=== PATIENT | female | born 1935 | race Caucasian/White ===

== ENCOUNTER → 2017-12-05 | Outpatient (CLI) | payer MEDICARE, OTHER ==
[~2017-12-05] MED LIST: ISOVUE-370 76% 100ML VIAL (Q9967) As Ordered
== END ==
LOC: M RAD 12:45
DX: R13.10 Dysphagia, unspecified (principal); K44.9 Diaphragmatic hernia without obstruction or gangrene
CPT/HCPCS: Q9967

== ENCOUNTER 2017-12-19 10:09 | Day surgery (SDC) | payer MEDICARE ==
[2017-12-19] MEDS ORDERED: NS 1,000 ML IV (10:15)
[2017-12-19] MEDS ORDERED: PROPOFOL 200 MG/20 ML VIAL As Ordered ×2 (11:13)
[2017-12-19] MEDS ORDERED: ALBUTEROL SULFATE 2.5 MG/0.5 ML INH NEB SOLN As Ordered (11:14)
[2017-12-19] MEDS: ALBUTEROL SULFATE 2.5 MG/0.5 ML INH NEB SOLN INH (11:15)
[2017-12-19] MEDS ORDERED: LIDOCAINE 2% INJ 100 MG/5 ML SDV (FOR ANES.) As Ordered (11:18)
== END 2017-12-19 12:41 | disposition home or self-care (01) ==
LOC: M OPP 10:09
DX: R13.10 Dysphagia, unspecified (principal); K44.9 Diaphragmatic hernia without obstruction or gangrene; K22.8 Other specified diseases of esophagus; K31.89 Other diseases of stomach and duodenum; K21.9 Gastro-esophageal reflux disease without esophagitis; R12 Heartburn; R06.02 Shortness of breath; M19.90 Unspecified osteoarthritis, unspecified site; M41.9 Scoliosis, unspecified; M81.0 Age-related osteoporosis without current pathological fracture; J44.9 Chronic obstructive pulmonary disease, unspecified; Z87.891 Personal history of nicotine dependence; Z79.899 Other long term (current) drug therapy; Z80.8 Family history of malignant neoplasm of other organs or systems
CPT/HCPCS: 43235

== ENCOUNTER 2018-03-25 11:26 | Inpatient (IN) | payer MEDICARE ==
[~2018-03-25] VITALS: Ht 149.9 cm; Wt 58.0 kg
[2018-03-25] VITALS (31 sets, daily range): BP systolic 115–174; BP diastolic 65–104
[2018-03-25] MEDS: MOM 30ML SUSPENSION UDC PO SCH (09:00)
[~2018-03-25 11:26] MED LIST changes: +/MOXI40TA OR; +/TIOT18INH INH; +ALBU83IN INH; +ATIV0.5T OR; +BABY81CH OR; +CALCTAB22 OR; +DEXI60CA2 PO; -ISOVUE-370 76% 100ML VIAL (Q9967) As Ordered; +MIRA3350 PO; +MULTIVIT PO; +OMEP40CA2 PO; +PRED10TA2 OR; +PRIL40CA OR; +PROAAER10 INH; +PULM0.5S INH; +RA C100C11 PO; +RANI150T PO; +SPIR12.9 INH; +SUCR1TA PO; +SYMB16INH INH; +TREL1AER INH; +XOPE1.252 IN
[2018-03-25] MEDS ORDERED: SUCR10SS PO (13:57)
[2018-03-25] MEDS ORDERED: ASPI1TAB PO (13:58)
[2018-03-25] MEDS ORDERED: TYLE325T5 PO (13:58)
[2018-03-25] MEDS ORDERED: DOCU100T8 PO (13:58)
[2018-03-25 14:54] LABS: INR 0.99; PROTHROMBIN TIME 13.2 SECONDS (12.1-14.4)
--- NOTE | 2018-03-25 15:07 | REP ---
Clinical: Pleural effusion. Technique: Axial noncontrast images from the thoracic inlet to the upper abdomen with coronal and sagittal re-formations. Comparison: 12/05/2017. Findings: Ujhgkjoi-me-pwzkd right pleural effusion is appreciated along with near complete collapse to the right lower lobe as well as right middle lobe and right upper lobe perihilar atelectasis. Left hemithorax demonstrates minimal left basilar atelectasis. Atherosclerotic changes to the thoracic aorta and coronary arteries identified without aortic aneurysm or cardiomegaly. No significant pericardial effusion. No significant hiatal hernia identified on current examination. No pneumothorax. Osseous structures demonstrate degenerative changes and stable grade 3/four compression deformities at T11 through L2. Impression: Lurdhfpl-[id number] right pleural effusion with near complete collapse to the right lower lobe and associated perihilar right middle lobe and right upper lobe atelectasis. Electronically Signed by Chucky Ann MD 03/25/2018 02:58 P
--- NOTE | 2018-03-25 15:09 | REP ---
Clinical: Pleural effusion. Comparison: 07/31/2011. Findings: Ujrztdko-cz-asqkq right pleural effusion with bibasilar atelectasis. Cardiac silhouette is within normal limits. No pneumothorax identified. Skeletal structures intact. Impression: Zxoxprup-gh-opwre right pleural effusion with bibasilar atelectasis. Electronically Signed by Chucky Ann MD 03/25/2018 03:00 P
[2018-03-25] MEDS: methylPREDNISolone INJ 125 MG/2 ML VIAL (J2930) IV SCH ×2 (15:36→22:08)
[2018-03-25] MEDS: IPRATROPIUM 0.5MG/ALBUTEROL 2.5MG INH SOL UD 3ML (DUONEB)(J7620) NEB PRN (16:30)
[2018-03-25] MEDS ORDERED: MIDAZOLAM INJ 2 MG/2 ML VIAL (J2250) As Ordered ONE (16:59)
[2018-03-25] MEDS ORDERED: LIDOCAINE 1% MDV 20ML VIAL As Ordered ONE (16:59)
[2018-03-25] MEDS ORDERED: FLUMAZENIL 0.5 MG/5 ML VIAL As Ordered ONE (17:16)
[2018-03-25] MEDS ORDERED: KCL 20MEQ IN D5/NS 1000ML 1,000 ML IV SCH (17:41)
[2018-03-25] MEDS ORDERED: ACETAMINOPHEN TAB 650MG DOSE (2X325MG) PO PRN (17:45)
[2018-03-25] MEDS ORDERED: PERCOCET 5MG/325MG TAB PO PRN ×2 (17:45)
[2018-03-25] MEDS ORDERED: BISACODYL 10 MG SUPP PR PRN (17:45)
[2018-03-25] MEDS ORDERED: LEVALBUTEROL 1.25 MG/0.5 ML CONCENTRATE NEB NEB PRN (17:45)
[2018-03-25] MEDS ORDERED: ONDANSETRON 4MG/2ML VIAL (J2405) IV PRN (17:45)
[2018-03-25] MEDS ORDERED: NORCO, ANEXSIA 5/325MG TABLET (HYDROcodone/ACETAMINOPHEN) PO PRN (17:45)
--- NOTE | 2018-03-25 17:57 | REP ---
Clinical: Status post chest tube. Comparison: 03/25/2018 at 02:28 p.m. Findings: Right-sided chest tube extends to the medial mid lung zone. Previously noted large right pleural effusion is considerably improved. Bibasilar atelectasis and small left pleural effusion suggested. No obvious pneumothorax. Impression: Status post right chest tube with significantly improved right pleural effusion. Small left pleural effusion. Bibasilar atelectasis Electronically Signed by Chucky Ann MD 03/25/2018 05:48 P
[2018-03-25] MEDS ORDERED: MIDAZOLAM INJ 2 MG/2 ML VIAL (J2250) IV STA (18:03)
[2018-03-25] MEDS ORDERED: LIDOCAINE 1% MDV 20ML VIAL SC ONE (18:15)
[2018-03-25 18:23] LABS: BASO % 0.2 % (0.0-1.0); HEMATOCRIT 39.7 % (36.0-47.0); HEMOGLOBIN 12.9 g/dl (12.0-15.5); LYMPH # 0.3 10^3/uL (1.5-4.5); LYMPH % 4.9 % (24.0-44.0); MEAN CORPUSCULAR HEMOGLOBIN 30.3 pg (27.0-33.0); MEAN CORPUSCULAR HGB CONC 32.5 g/dl (32.0-36.5); MEAN CORPUSCULAR VOLUME 93.2 fl (80.0-96.0); MONO # 0.1 10^3/uL (0.0-0.8); NEUTROPHILS # 5.6 10^3/uL (1.8-7.7); NEUTROPHILS % 93.2 % (36.0-66.0); PLATELET COUNT, AUTOMATED 382 10^3/uL (150-450); RED BLOOD COUNT 4.26 10^6/uL (4.00-5.40)
[2018-03-25 18:41] LABS: ALBUMIN 2.9 GM/DL (3.2-5.2); ALT/SGPT 16 U/L (12-78); BILIRUBIN,TOTAL 0.2 MG/DL (0.2-1.0); BLOOD UREA NITROGEN 9 MG/DL (7-18); CALCIUM LEVEL 8.7 MG/DL (8.8-10.2); CARBON DIOXIDE LEVEL 29 MEQ/L (21-32); CHLORIDE LEVEL 103 MEQ/L (98-107); CHOLESTEROL LEVEL 138 MG/DL (< 200); CPK CREATINE PHOSPHOKINASE 23 U/L (26-192); CREATININE FOR GFR 0.62 MG/DL (0.55-1.30); GLOMERULAR FILTRATION RATE > 60.0 (>32); GLUCOSE, FASTING 137 MG/DL (70-100); PHOSPHORUS LEVEL 3.5 MG/DL (2.5-4.9); POTASSIUM SERUM 4.3 MEQ/L (3.5-5.1); SODIUM LEVEL 139 MEQ/L (136-145); TOTAL PROTEIN 7.2 GM/DL (6.4-8.2); TRIGLYCERIDES LEVEL 47 MG/DL (<150)
[2018-03-25 18:43] LABS: ABG BASE EXCESS 2.7 (-2.0-2.0); ABG HCO3 27.4 MEQ/L (22.0-26.0); ABG PARTIAL PRESSURE CO2 42.4 mmHg (35.0-45.0); ABG PARTIAL PRESSURE O2 87.8 mmHg (75.0-100.0); ABG STANDARD HCO3 26.9 MEQ/L (22.0-26.0); ABG TOTAL CO2 28.7 MEQ/L (23.0-31.0); ABG pH (ARTERIAL) 7.428 UNITS (7.350-7.450)
[2018-03-25 18:58] LABS: APPEARANCE, BODY FLUID CLOUDY (CLEAR); PLEURAL FL COLOR YELLOW (COLORLESS); SOURCE, BODY FLUID PLEURAL
[2018-03-25 19:09] LABS: AMYLASE, BODY FLUID 27 U/L (NOT ESTABLISHED); CHOLESTEROL, BODY FLUID 93 MG/DL (NOT ESTABLISHED); LDH, BODY FLUID 194 U/L (NOT ESTABLISHED); SOURCE, BODY FLUID ALBUMIN PLEURAL; SOURCE, BODY FLUID AMYLASE PLEURAL; SOURCE, BODY FLUID CHOL PLEURAL; SOURCE, BODY FLUID GLUCOSE PLEURAL; SOURCE, BODY FLUID LDH PLEURAL; SOURCE, BODY FLUID TOT PROTEIN PLEURAL; SOURCE, BODY FLUID TRIG PLEURAL; TOTAL PROTEIN, BODY FLUID 4.9 G/DL (NOT ESTABLISHED); TRIGLYCERIDE, BODY FLUID 31 MG/DL (NOT ESTABLISHED)
[2018-03-25 19:15] LABS: PH BODY FLUID 7.579 UNITS (NOT ESTABLISHED); SOURCE, BODY FLUID pH PLEURAL
[2018-03-25 19:17] LABS: LDH LACTATE DEHYDROGENASE 168 U/L (84-246)
[2018-03-25] MEDS: HEPARIN SOD (PORCINE) 5000 UNITS/ML VIAL SC SCH (20:03)
[2018-03-25] MEDS: DOCUSATE SODIUM 100 MG CAP PO SCH (20:03)
[2018-03-25] MEDS: LEVALBUTEROL 1.25 MG/0.5 ML CONCENTRATE NEB NEB SCH (20:08)
--- NOTE | 2018-03-25 22:45 | HPE ---
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 The patient has apparently been short of breath approximately 1 week, unrelieved by her nebulizer treatments. She did not increase her oxygen during the week, she was maintained at 2 liters nasal cannula. She has a history of chronic obstructive pulmonary disease (COPD) exacerbation. She also has a history of pleural effusion with thoracentesis that was done in January of this year in [facility] in [place], results which are still pending review once we get the information. The patient has not had any associated cough or productive sputum, just shortness of breath that has been worsening for over 1 week. Chest x-ray that was done in [place] showed the patient had large right pleural effusion and thus is admitted in the intensive care unit (ICU) and will be further managed with us at [facility]. PAST MEDICAL HISTORY: 1. Oxygen dependent COPD ALLERGIES: She has no known drug allergies. FAMILY HISTORY: Noncontributory. SOCIAL HISTORY: The patient used to be a heavy smoker but quit approximately 10 years ago. Denies alcohol or illicit drugs. MEDICATIONS: She takes at home: - Tylenol 650 mg orally every 4 hours as needed - albuterol as needed - aspirin 81 mg orally daily - Dexilant 60 mg orally daily - Colace 100 mg orally twice a day - ranitidine 150 mg orally daily - sucralfate 10 mL by mouth before meals - Trilogy Ellipta one puff inhaled daily REVIEW OF SYSTEMS: Negative for all ten major systems except what is mentioned in the history of present illness. PHYSICAL EXAMINATION: VITAL SIGNS: Blood pressure 169/104, pulse 88 and regular, respiratory rate 30, temperature 98.6, oxygen saturation was 98% on 50% Ventimask. Head is atraumatic, normocephalic. Neck is supple with no jugular venous distention (JVD). Lungs have diminished breath sounds on the right. S1, S2 audible. No murmurs appreciated. Abdomen is soft. Positive bowel sounds. No pedal edema. Skin is intact. Neurologic examination, the patient is awake, alert and oriented times three. LABORATORIES: Coagulation profile: PT 13.2, INR is 0.99, and all laboratories from [place] were reviewed and were nominal. IMPRESSION: 1. Acute hypoxemic respiratory failure. 2. Pleural effusion. 3. Chronic obstructive pulmonary disease (COPD) exacerbation. PLAN: The patient is to be admitted to the intensive care unit (ICU). We will continue at 50% Ventimask and continue to titrate it down if possible. She was initially on bilevel positive airway pressure (BIPAP) when she came in from [place] and has tolerated 100% and was tolerating 50% as well. We will get Dr. Gamboa, thoracic surgeon, to put in a chest tube. He is aware and is on consultation. We will start the patient on Solu-Medrol at 60 every 8 hours and DuoNebs every 4 hours. Continue her preadmission medications. We will continue to follow her care in the intensive care unit (ICU). Total critical care time was 40 minutes.
[2018-03-26] VITALS (8 sets, daily range): BP systolic 106–142; BP diastolic 63–75
[2018-03-26] MEDS: LEVALBUTEROL 1.25 MG/0.5 ML CONCENTRATE NEB NEB SCH ×4 (01:20→19:54)
[2018-03-26 04:31] LABS: BASO % 0.2 % (0.0-1.0); HEMATOCRIT 33.4 % (36.0-47.0); HEMOGLOBIN 11.1 g/dl (12.0-15.5); LYMPH # 0.5 10^3/uL (1.5-4.5); LYMPH % 9.4 % (24.0-44.0); MEAN CORPUSCULAR HEMOGLOBIN 29.6 pg (27.0-33.0); MEAN CORPUSCULAR HGB CONC 33.2 g/dl (32.0-36.5); MEAN CORPUSCULAR VOLUME 89.1 fl (80.0-96.0); MONO # 0.2 10^3/uL (0.0-0.8); MONO % 3.2 % (0.0-5.0); NEUTROPHILS # 4.6 10^3/uL (1.8-7.7); NEUTROPHILS % 86.6 % (36.0-66.0); PLATELET COUNT, AUTOMATED 360 10^3/uL (150-450); RED BLOOD COUNT 3.75 10^6/uL (4.00-5.40); WHITE BLOOD COUNT 5.3 10^3/uL (4.0-10.0)
[2018-03-26 04:55] LABS: BLOOD UREA NITROGEN 12 MG/DL (7-18); CARBON DIOXIDE LEVEL 29 MEQ/L (21-32); CHLORIDE LEVEL 101 MEQ/L (98-107); CREATININE FOR GFR 0.52 MG/DL (0.55-1.30); GLOMERULAR FILTRATION RATE > 60.0 (>32); GLUCOSE, FASTING 144 MG/DL (70-100); POTASSIUM SERUM 3.8 MEQ/L (3.5-5.1); SODIUM LEVEL 137 MEQ/L (136-145)
[2018-03-26 06:09] LABS: ABG BASE EXCESS 5.1 (-2.0-2.0); ABG HCO3 30.2 MEQ/L (22.0-26.0); ABG O2 SATURATION 98.7 % (95.0-99.0); ABG PARTIAL PRESSURE CO2 46.4 mmHg (35.0-45.0); ABG PARTIAL PRESSURE O2 125.5 mmHg (75.0-100.0); ABG STANDARD HCO3 29.1 MEQ/L (22.0-26.0); ABG TOTAL CO2 31.6 MEQ/L (23.0-31.0); ABG pH (ARTERIAL) 7.431 UNITS (7.350-7.450)
[2018-03-26] MEDS: methylPREDNISolone INJ 125 MG/2 ML VIAL (J2930) IV SCH ×3 (06:53→23:00)
[2018-03-26] MEDS: SUCRALFATE SUSP 1GM/10ML UD PO SCH ×3 (08:19→17:32)
[2018-03-26] MEDS: ASPIRIN 81 MG ENTERIC TAB PO SCH (08:19)
[2018-03-26] MEDS: HEPARIN SOD (PORCINE) 5000 UNITS/ML VIAL SC SCH ×2 (08:19→21:05)
[2018-03-26] MEDS: PANTOPRAZOLE 40MG TAB (PROTONIX) PO SCH (08:19)
[2018-03-26] MEDS: FAMOTIDINE 20 MG TAB PO SCH (08:19)
[2018-03-26] MEDS: DOCUSATE SODIUM 100 MG CAP PO SCH ×2 (08:19→21:05)
[2018-03-26] MEDS: MOM 30ML SUSPENSION UDC PO SCH (08:19)
--- NOTE | 2018-03-26 09:11 | REP ---
Clinical: Follow up pleural effusion. Comparison: 03/25/2018. Findings: Right-sided chest tube. Bibasilar atelectasis, left lower lobe consolidation and small left pleural effusion. Small residual right pleural effusion cannot be excluded. No obvious pneumothorax. Cardiac silhouette is normal. Skeletal structures stable. Impression: 1. Left lower lobe consolidation with left basilar atelectasis and small pleural effusion may be slightly increased from prior examination. 2. Small right residual effusion cannot be excluded. Electronically Signed by Chucky Ann MD 03/26/2018 09:02 A
--- NOTE | 2018-03-26 12:13 | IPN ---
DATE: 03/26/2018 SUBJECTIVE: The patient tells me she is breathing much easier today. She has some pain when she coughs, but otherwise she has no specific complaints at this time. OBJECTIVE: VITAL SIGNS: Temperature 98.9, pulse 86, respiratory rate 20, blood pressure 106/63, oxygen saturation 97% on 2 liters. GENERAL: She is very pleasant frail elderly woman sitting up in bed. She does not appear to be in any acute distress. HEENT: Cranial nerves II-XII are grossly intact. She is wearing bifocal lenses. She has moist mucous membranes. No elevation of CVP. CARDIOVASCULAR: S1, S2, regular. RESPIRATORY: She actually has good air movement throughout bilaterally today. ABDOMEN: Benign. EXTREMITIES: No clubbing, cyanosis or edema. LABORATORY: WBC 5.3, hemoglobin 11.1, platelet count 360. Chemistry panel: Sodium 137, potassium 3.8, chloride 101, bicarbonate 29, BUN 12, creatinine 0.5. Arterial blood gas drawn this morning revealed a pH of 7.4, pCO2 of 46.4 and pO2 of 125.5. Pleural studies reveal elevated PMNs. Total WBC are 3080. Microbiology is currently pending. IMAGING: She had a chest x-ray from this morning that revealed left lower lobe consolidation with left basilar atelectasis and small pleural effusion. May be slightly increased from the prior exam. She had a CT scan of her chest yesterday which revealed moderate to large right pleural effusion with near complete collapse of the right lower lobe and associated perihilar right middle lobe and right upper lobe atelectasis. ASSESSMENT AND PLAN: This is an 82-year-old female with right-sided pleural effusion. PROBLEMS: 1. Right-sided pleural effusion. The etiology is not immediately clear. It does not appear to be grossly infected and as such at this time she is not on antibiotics. She does not appear septic. She is on nebulizer treatments. There is a history of COPD with chronic2 liters of oxygen dependence and as such she is on Solu-Medrol as well. She does not have any history of significant rheumatological conditions and there does appear to be some chronicity to it given the fact that it is mostly mononuclear cells. There is an order for cytology but not yet received by pathology. She reportedly also had thoracentesis completed in January at [facility]. There are no records in the chart despite my request for them at the time of her transfer from the [facility]. I will request the records once again to see if this has been worked up and evaluated already. It is certainly possible she could have a malignant effusion. 2. Large hiatal hernia. Patient is continued on her home Carafate. She is on Pepcid for that as well as Protonix. 3. Deep venous thrombosis (DVT) prophylaxis. She is on heparin. DISPOSITION: Pending further evaluation of her right-sided pleural effusion and chest tube. Thoracic surgery's help is greatly appreciated.
--- NOTE | 2018-03-26 13:12 | IPN ---
DATE: 03/26/2018 Ms Vanegas is breathing so much better today. She is sitting up in a chair comfortably and speaking in full sentences. Her pain is being well controlled at the chest tube insertion site. Her vital signs show a T-max of 98.8 with a heart rate that ranges between 82 and 86 in a sinus rhythm, respiratory rate is constant at 22, without the use of accessory muscles who is 98% saturated on 2 liters nasal cannula, and whose blood pressure is ranging between 106/63 to 125/72. Her intake and output over the past 24 hours has been recorded as 600 in and 2692 out for a negativity of 2000 mL. Most of that came from the chest tube yesterday. Over the past 12 hours she has only put out 40 mL from the chest tube. There is no air leak. On physical examination, she has inspiratory rales in the right lower hemithorax. Percussion note is full to the diaphragm. Otherwise she has normal vesicular sounds. Cardiac exam is without murmurs, clicks, gallops or rubs. I cannot feel her point of maximal impulse (PMI). S1, S2 are normal. Abdomen is soft and nontender. Bowel sounds to be positive. There is no hepatomegaly. No costovertebral angle (CVA) tenderness. Extremities show no pretibial edema, no calf tenderness. No differential swelling of the upper extremities. Skin is warm, dry and perfused without cyanosis or mottling including that of the nail beds and the knees. Neck is supple. There is no jugular venous distention, no subcutaneous emphysema. Trachea is midline. Mouth shows her mucous membranes to be pink and moist, lips and commissures without lesions. No thrush. Eyes show her pupils to be equal and reactive. Extraocular muscles intact. Sclera anicteric. Neuro shows II through XII intact. Gross motor and gross sensation intact. Gait is not tested. Psychiatric shows her to be awake, alert and oriented times three with appropriate mood and affect, and conversational. Her white count today is 5.3, with hemoglobin and hematocrit of 11.1 and 33.4, down from 12.9 and 39.7 yesterday. This is probably secondary to hemodilution from her IV. Platelet count is 360 and differential shows 86% neutrophils, 9% lymphocytes and 3% monocytes. There are no immature forms, no toxic granulations. Her chemistries today show normal electrolytes with a BUN and creatinine of 12 and 0.52, a glucose of 144 and a calcium of 8.0. Blood gases this morning show a pH of 7.43, pCO2 of 46, and a pO2 of 125 on the 2 liters nasal cannula. Base excess is 5.1. Her pleural fluid has been returned with a pH of 7.57 with a glucose of 137 and an LDH of 194, with a corresponding serum LDH of 168. She has 3080 white cells, 83% of which are lymphocytes and 16% are PMNs. This looks to be a mildly exudative normoglycemic lymphocytic pleural effusion. Pathology is pending. Her chest x-ray shows the right lung fully expanded to the chest wall. There is some blunting of the left costophrenic angle which is unchanged. Chest tube is in excellent position posteriorly. I see no signs of heart failure. IMPRESSION: 1. Right-sided lymphocytic exudative pleural effusion. 2. COPD. 3. Gastroesophageal reflux disease. 4. Status post hiatal hernia repair in the last few months at [facility], presumably a Trisha fundoplication. 5. Hypoxic respiratory failure, resolved. PLAN AND DISCUSSION: I will order an echocardiogram to look at her cardiac function as a means of explaining her pleural fluid. According to the patient, the pleural effusion that I removed yesterday was the same color as was the left side that was removed at [facility]. They first told me that the pleural effusion that was tapped on the left side was red. This was more yuliya. We will also await pathology to see if there are any malignant cells. Will undertake a CT scan of her as the lung is now fully expanded.
--- NOTE | 2018-03-26 17:33 | CR ---
DATE OF CONSULTATION: 03/25/2018 The patient is seen at the request of the hospitalist service. The patient is an 82-year-old white female transferred from [place]. There are no historical notes from the [facility]. The patient is awake and alert and can give me a fairly good history. She is accompanied by her daughters. HISTORY OF PRESENT ILLNESS: The patient is an 82-year-old white female who states that over the last 4 days she has become progressively more short of breath. Normally, she does not complain of orthopnea or paroxysmal nocturnal dyspnea. She underwent hernia repair at [facility] in [place] this last fall, having a postoperative course notable for a left pleural effusion, which was drained. The family reports that the left pleural effusion was bloody. She has had a cough over the last few days with production of yellow sputum. She denies fevers, chills, sweats or night sweats. She has lost about 5 pounds in the last few weeks and her daughters note that her clothes are now loose on her. She has no dysphagia and she does not choke with swallowing either solid or liquid food. No chest pain. No chest discomfort. There is no dysphagia. PAST MEDICAL HISTORY: According to the patient she has chronic obstructive pulmonary disease (COPD) and gastroesophageal reflux disease (GERD). She also has constipation, for which she takes a stool softener. PAST SURGERIES: Hip repair in the remote past and the hiatal hernia repair, which I presume was a Trisha fundoplication a few weeks ago. MEDICATIONS: At home: - Tylenol 650 mg every 4 hours as needed for pain - ProAir HFA two puffs every 4 hours as needed for shortness of breath - albuterol nebulizer 2.5 mg three times a day - aspirin 81 mg daily - Dexilant 60 mg daily - Docusate 100 mg twice a day - MiraLAX 17 grams by mouth as needed for constipation - ranitidine 150 mg daily - sucralfate 10 mL by mouth after meals - Trilogy Ellipta 162.5/25 mcg one puff daily TRAVEL HISTORY: She has traveled to [place], but not to the [facility]. There is no foreign travel. EXPOSURES: She has had no known exposure to tuberculosis. There are no dogs, birds or cats at home at this point in time, although she has had them in the past. She used to have a Cocker Spaniel. 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 She is unsure of asbestos exposure. HABITS: Smoked one pack per day until 5 years ago. She obtained them [place]. She imbibes alcohol occasionally. No illicit drugs. FAMILY HISTORY: Noncontributory to the acute situation. REVIEW OF SYSTEMS: CONSTITUTIONAL: See history of present illness. Without fevers, chills, sweats or night sweats. EYES: Without diplopia, though she states that her vision has become more blurry the past few months, for which she is seeing an credit reporting clerk. No amaurosis fugax. No prior jaundice. NOSE: Without epistaxis. MOUTH: Has dentures. RESPIRATORY: See history of present illness. CARDIAC: Without peripheral edema. Without prior myocardial infarction. Without intermittent claudication. Is not aware of tachycardia or palpitations. GASTROINTESTINAL: Without nausea, vomiting or diarrhea. She does have constipation. Without melena or hematochezia, hematemesis or abdominal pain. GENITOURINARY: Without hematuria, dysuria or history of renal stones. ENDOCRINE: Without diabetes or thyroid disease. NEUROLOGIC: Without paresthesias, paralysis or prior seizures. PSYCHIATRIC: Without anxieties, depression, or psychoses. LYMPHATICS: Without lumps or bumps in the neck, axillae or groin. PHYSICAL EXAMINATION: Frail, 82-year-old white female who prior to becoming short of breath was completely self sufficient and mobile at home. VITAL SIGNS: Temperature 98.9, heart rate is 85 and in a sinus rhythm, respiratory rate 28 without the use of accessory muscles, who is 98% saturated on 15 liter high flow Venti-mask at 65%. Blood pressure is 148/74. EYES: Pupils are equal, round and reactive to light. Extraocular muscles are intact. Sclerae nonicteric. NOSE: Without deformity. MOUTH: Shows mucous membranes are pink and moist. Lips and commissures without lesions. There is no thrush. HEAD: Normocephalic. NECK: Supple. There is no jugular venous distention (JVD). No subcutaneous emphysema. Trachea is midline. She has 2+ carotid upstrokes without carotid bruits. There is no thyromegaly or lymphadenopathy. LUNGS: Show decreased breath sounds on the right side and percussion note is dull on the right side. She has expiratory and inspiratory wheezing, which is quite pronounced over both lung deal. CARDIAC: Without murmurs, clicks, gallops or rubs. I cannot feel her point of maximum impulse (PMI). S1, S2 are normal. Most of the heart sounds are disguised by her expiratory and inspiratory wheezing. ABDOMEN: Soft, nontender. Bowel sounds are positive. There is no hepatomegaly. No costovertebral angle tenderness. She does have kyphosis of her lower thoracic and lumbar spine. EXTREMITIES: No pretibial edema. No calf tenderness. No differential swelling of the upper extremities. SKIN: Warm, dry and perfused without cyanosis or mottling, including that of the nail beds and knees. NEUROLOGIC: Shows II-XII intact. Gross motor and gross sensation intact. Gait is not tested. PSYCHIATRIC: Shows her to be awake, alert and oriented times three with appropriate mood and affect and conversational. INVESTIGATIONS: PT/INR is 13.2 and 0.99. Laboratories done at [place] emergency room showed ABG with a pH of 7.36, pCO2 of 48, and a pO2 of 70 with a base excess of 1.1. White count is 6.6 with a hemoglobin and hematocrit of 12.1 and 37.4. She has 390 platelets. Differential shows 74% neutrophils, 11% lymphocytes, and 10% monocytes. No immature forms and no toxic granulations were noted. Chemistries shows normal electrolytes with a total CO2 of 26, BUN and creatinine of 8 and 0.4, albumin is 3.4 with a calcium of 8.9. Glucose is 124. Liver functions are normal. CPK is 22 and BNP is 463, which is just above the upper limits of normal for our institution. Troponin is 0.01. Electrocardiogram (EKG) shows a sinus rhythm without any acute changes. Her chest x-ray done here was a portable study and shows an opacity in the right lower hemithorax, which looks like fluid. The portable lateral chest x-ray is done. The left lung shows the lung fully expanded to the chest wall. The mediastinum is in the midline. A chest CT done without contrast confirms a pleural effusion, which occupies about half of the chest. I do not see emphysematous changes. There is no paratracheal or mediastinal lymphadenopathy. The right lower lobe is compressed. Proximal bronchia look open. Her liver is a bit lumpy-bumpy. Pancreas has normal configuration. Left adrenal has a normal configuration, as does the right. Kidneys look to be intact, as does the spleen. IMPRESSION: 1. Right sided pleural effusion, unknown etiology. 2. Status post hiatal hernia repair, presumably Trisha fundoplication with a left pleural effusion previously drained at [facility]. 3. Chronic obstructive pulmonary disease (COPD). 4. Impending respiratory failure with a respiratory rate of 28 and being very short of breath. 5. Hypoxia needing high flow oxygen via Venti-mask. 6. Gastroesophageal reflux disease (GERD). PLAN AND DISCUSSION: The first order of business will be to drain the chest. I will place a lateral chest tube. We will send the results off for the requisite chemistries, cytologies, hematology and bacteriologies. I do not think that this represents an underlying pneumonia or empyema, although she has been coughing with yellow sputum for the last 4 days. She may have congestive heart failure (CHF), but there is no real good history of that and her BNP is only minimally elevated. Electrocardiogram (EKG) does not show any evidence of an old myocardial infarction, nor are there any acute changes. This may be left over from surgery and would certainly suspicious for old blood.. It should be noted that I do not see a pericardial effusion on the chest CT. WE will need to obtain an echo to look at her heart function. RHIANNA
[2018-03-27] VITALS: BP 116/59
[2018-03-27] MEDS: LEVALBUTEROL 1.25 MG/0.5 ML CONCENTRATE NEB NEB SCH ×4 (01:30→20:54)
[2018-03-27 03:57] LABS: HEMATOCRIT 34.6 % (36.0-47.0); HEMOGLOBIN 11.5 g/dl (12.0-15.5); MEAN CORPUSCULAR HEMOGLOBIN 30.1 pg (27.0-33.0); MEAN CORPUSCULAR HGB CONC 33.2 g/dl (32.0-36.5); MEAN CORPUSCULAR VOLUME 90.6 fl (80.0-96.0); PLATELET COUNT, AUTOMATED 373 10^3/uL (150-450); RED BLOOD COUNT 3.82 10^6/uL (4.00-5.40); WHITE BLOOD COUNT 19.3 10^3/uL (4.0-10.0)
[2018-03-27 04:00] VITALS: BP 108/55
[2018-03-27 04:20] LABS: BLOOD UREA NITROGEN 12 MG/DL (7-18); CARBON DIOXIDE LEVEL 29 MEQ/L (21-32); CHLORIDE LEVEL 102 MEQ/L (98-107); CREATININE FOR GFR 0.54 MG/DL (0.55-1.30); GLOMERULAR FILTRATION RATE > 60.0 (>32); GLUCOSE, FASTING 162 MG/DL (70-100); POTASSIUM SERUM 4.2 MEQ/L (3.5-5.1); SODIUM LEVEL 137 MEQ/L (136-145)
[2018-03-27 04:52] LABS: LYMPHOCYTES 3 % (16-52); MONOCYTES 2 % (0-8); NEUTROPHILS 95 % (35-75); PLATELET CLUMPS SMALL AMT; PLATELET ESTIMATE NORMAL (NORMAL)
[2018-03-27] MEDS: SUCRALFATE SUSP 1GM/10ML UD PO SCH ×3 (06:22→17:55)
[2018-03-27] MEDS: methylPREDNISolone INJ 125 MG/2 ML VIAL (J2930) IV SCH (06:23)
[2018-03-27 07:27] VITALS: BP 128/66
--- NOTE | 2018-03-27 08:32 | REP ---
Clinical: Follow up pleural effusion. Comparison: 03/26/2018, 03/25/2018. Findings: Right-sided chest tube in stable position with small residual right pleural effusion/atelectasis unchanged. No obvious pneumothorax. Small left pleural effusion with left lower lobe consolidation may be slightly increased from prior examination. Cardiac silhouette is within normal limits. Skeletal structures stable. Impression: 1. Right chest tube. Small residual right pleural effusion and atelectasis stable. 2. Small left pleural effusion and left lower lobe consolidation minimally increased. Electronically Signed by Chucky Ann MD 03/27/2018 08:23 A
--- NOTE | 2018-03-27 09:22 | REP ---
Clinical: Possible mass. Technique: Axial noncontrast images from the thoracic inlet to the upper abdomen with coronal and sagittal re-formations. Comparison: 03/25/2018, 12/05/2017. Findings: A right-sided chest tube is identified extending medially along the posterior right hemithorax. The right lung demonstrates a small residual anteroapical pneumothorax along with subtle atelectasis and/or small amount of trapped pleural fluid along the minor fissure and trace medial basilar suspected scarring. The left hemithorax demonstrates moderate areas of consolidation involving the lingula and left lower lobe with air bronchograms and small amount of associated pleural fluid. Subtle air space disease in the left upper lobe may represent early forming infiltrate as this represents a change from 03/25/2018. Mild scattered chronic bronchiectasis suggested. There is evidence for a mild/moderate sliding paraesophageal hiatal hernia which was not evident on 03/25/2018, but even more pronounced on 12/05/2017. Further evaluation of the mediastinum demonstrates atherosclerotic changes to the thoracic aorta and coronary arteries without aortic aneurysm or cardiomegaly. No significant pericardial effusion. Small likely reactive lymph nodes in the mediastinum identified without ana adenopathy. Surrounding musculoskeletal structures stable. Limited upper abdomen demonstrates normal bilateral adrenal glands. Impression: 1. Right hemithorax demonstrates small residual pneumothorax and small amount of trapped fluid in the minor fissure along with adjacent trace atelectasis. 2. Left hemithorax demonstrates moderate consolidation involving the lingula and left lower lobe with small amount of associated pleural fluid. 3. Current examination demonstrates a moderate sliding paraesophageal hiatal hernia extending from the left upper abdomen which was not apparent on 03/25/2018, but largest on 12/05/2017. Electronically Signed by Chucky Ann MD 03/27/2018 09:13 A
[2018-03-27] MEDS: MOM 30ML SUSPENSION UDC PO SCH (09:53)
[2018-03-27] MEDS: HEPARIN SOD (PORCINE) 5000 UNITS/ML VIAL SC SCH ×2 (09:53→20:05)
[2018-03-27] MEDS: DOCUSATE SODIUM 100 MG CAP PO SCH ×2 (09:54→20:04)
[2018-03-27] MEDS: PANTOPRAZOLE 40MG TAB (PROTONIX) PO SCH (09:54)
[2018-03-27] MEDS: ASPIRIN 81 MG ENTERIC TAB PO SCH (09:54)
[2018-03-27] MEDS: FAMOTIDINE 20 MG TAB PO SCH (09:54)
[2018-03-27] MEDS: MIRALAX *UNIT DOSE* 17GM PACKET PO SCH (11:31)
[2018-03-27 11:50] VITALS: BP 119/62
--- NOTE | 2018-03-27 13:01 | IPNPDOC ---
Text Note Date of Service The patient was seen on 03/27/18. NOTE Subjective: Patient was seen and examined at the bedside. Currently she has no new complaints. Denies any CP, SOB or palpitations. Notes that her breathing feels better. Denies any N/V, abdominal pain, C/D. Objective: Vitals (See below) General: Lying in bed, no acute distress, comfortable, AAOx3 HEENT: NC, AT CVS: RRR, +S1S2, R sided chest tube Lungs: Fair air entry b/l, -w/r/r Abdomen: Soft, ND, NT Extremities: - Edema, - Calf tenderness Assessment and plan: Ride sided pleural effusion - etiology unclear, possibly rheumatologic, possibly infectious - Clinically has reported improvement in breathing since fluid has been removed - Patient has had a recent thoracocentesis performed; review of records from [facility] did not reveal any fluid analysis results - Physical unrevealing - Elevation in WBC this morning - Fluid analysis consistent with Exudative etiology; Cytology pending - CT chest 03/27: Right hemithorax demonstrates small residual pneumothorax and small amount of trapped fluid in the minor fissure along with adjacent trace atelectasis. Left hemithorax demonstrates moderate consolidation involving the lingula and left lower lobe with small amount of associated pleural fluid. Cu rrent examination demonstrates a moderate sliding paraesophageal hiatal hernia extending from the left upper abdomen which was not apparent on 03/25/2018, but largest on 12/05/2017. - Zosyn has been started (Day #1) - Dr. Gamboa on consultation; appreciate their input Hx of COPD - no evidence of exacerbation this morning - Will taper down Solumedrol - c/w inhaled therapy as ordered Large Hiatal hernia - Patient has had a recent Laparoscopic Fundoplication 01/30/2018 at [facility] - c/w Protonix / Famotidine DVT prophylaxis - c/w Heparin Disposition: - Awaiting clinical improvement Parul CASTELLON, I+O VSParul, I+O Laboratory Tests 03/27/18 03:48 Red Blood Count 3.82 L, Mean Corpuscular Volume 90.6, Mean Corpuscular Hemoglobin 30.1, Mean Corpuscular Hemoglobin Concent 33.2, Red Cell Distribution Width 12.8, Calcium Level 8.0 L Vital Signs Date Time Temp Pulse Resp B/P (MAP) Pulse Ox O2 Delivery O2 Flow Rate FiO2 03/27/18 12:00 2.0 03/27/18 07:27 98.8 78 22 128/66 (86) 95 Nasal Cannula 03/25/18 16:22 50 I&O- Last 24 Hours up to 6 AM 03/27/18 06:00 Intake Total 920 ml Output Total 1280 ml Balance -360 ml FAZAL GORDON MD Mar 27, 2018 13:01
[2018-03-27] MEDS: PIPERACILLIN/TAZOBACTAM SOD 3.375 GM in D5W MINI-BAG PLUS 50 ML IV SCH ×3 (13:30→23:42)
--- NOTE | 2018-03-27 13:53 | IPN ---
DATE: 03/27/2018 Ms Vanegas is breathing quite well today. The pain is being well controlled at the chest tube insertion site. She is up and about ambulating and went down to x-ray today. Her vital signs show a maximum temperature (T-max) of 98.8 with a heart rate that ranges between 84 and 90 and in sinus rhythm, respiratory rate of 20-22 without the use of accessory muscles, who is 96% saturated on 2 liters nasal cannula and has blood pressures that range between 119/66 to 108/55. Her intake and output over the last 24 hours has been recorded as 560 in and 1510 out for a negativity of 950 mL. She put out a 120 mL out the chest tube. There is no air leak. On physical examination, she has equal breath sounds on either side. I hear no wheezing, although there is some inspiratory rales and crackles at the left lower lobe. Percussion note is dull in the left base. Cardiac exam is without murmurs, clicks, gallops or rubs. I cannot feel her point of maximum impulse (PMI). S1 and S2 are normal. Abdomen is soft and nontender. Bowel sounds are positive. There is no hepatomegaly. No costovertebral angle (CVA) tenderness. Extremities still show no pretibial edema with no calf tenderness. No differential swelling of the upper extremities. Skin is warm, dry and perfused without cyanosis or mottling including that of the nail beds and knees. Neck is supple. There is no jugular venous distention. No subcutaneous emphysema. Trachea is midline. Mouth shows her mucous membranes to be pink and moist. Lips and commissures are without lesions. There is no thrush. Eyes show her pupils to be equal and reactive. Extraocular movements intact. Sclerae nonicteric. Neurologic shows II-XII intact along with gross motor and gross sensation intact. Gait is not tested. Psychiatric showed her to be awake, alert and oriented times three with appropriate and affect and conversational. White count today is up to 19.3 from 5.3 yesterday. Hemoglobin and hematocrit are 11.5 and 34.6 respectively, essentially unchanged from yesterday with a platelet count of 373. Differential shows 95% neutrophils, 3% lymphocytes, 2% monocytes. There are no immature forms or toxic granulations. Her electrolytes are normal today with a BUN and creatinine of 12 and 0.54, glucose 162, calcium 8.0. There are no blood gases on her today. I discussed her pleural fluid yesterday being slightly exudative with an LDH 194 but normal glycemic and predominantly lymphocytic. There were 3080 white cells and only 9 red cells in the fluid. Her chest x-ray today shows her right lung fully expanded to the chest wall. Left lung shows blunting of the left costophrenic angle. Lateral view shows the chest tube being in good place. There appears to be fluid in one of the major fissures, although I cannot tell which one. I did send her down for a chest CT today to look for underlying pathology now that the lung is re-expanded. Notably on the right side, there is very little pathology. There is emphysematous changes consistent with her chronic obstructive pulmonary disease (COPD). There is fluid in the minor fissure on the right side. I do not see any evidence of masses nor infiltrates. However, on the left side, I see a large amount of consolidation in the left lower lobe. There is some underlying fluid, but not much. There is minimal paratracheal mediastinal lymphadenopathy and I do not see hilar lymphadenopathy on the right with minimal hilar lymphadenopathy on the left. The CT is noncontrasted. There is no pericardial effusion. She still has a significant hiatal hernia into the chest. IMPRESSION: 1. Right-sided lymphocytic exudate pleural effusion of unknown origin at this point in time. 2. Chronic obstructive pulmonary disease (COPD). 3. Gastroesophageal reflux disease (GERD). 4. Status post hiatal hernia repair in the past few months, presumably a Leland fundoplication. 5. Hypoxic respiratory failure, resolved. 6. Left lower lobe consolidation. PLAN AND DISCUSSION: Her Gram stain is showing many gram-negative positive cocci. This species could be consistent with Klebsiella, Legionella, Serratia or Haemophilus influenza or even Pseudomonas. I will therefore, start her on Zosyn until we get the final cultures back. She did come in with yellow sputum production. She has not acted septic. I will also markedly decrease her steroids as she was just started on them at [place] and continued here on her admission. She is now on 60 three times a day and I will drop her to 20 three times a day with a quick taper over the next few days. Hopefully, done by the medical service. I have reviewed her echocardiogram done yesterday. The official report has not back in but it looks as though she does not have severe myocardial depression. There does not look to be severe valvular either. She may have some aortic regurgitation. Again, I will await the official report from cardiology. I will discontinue her chest tube today. I will also do a basic autoimmune workup to include rheumatoid factor and an MACI to further gain some insight into the cause of the pleural effusion.
[2018-03-27] MEDS: methylPREDNISolone INJ 40 MG/1 ML VIAL (J2920) IV SCH ×2 (15:05→23:42)
[2018-03-27 20:00] VITALS: BP 104/56
[2018-03-28] VITALS: BP 119/52
[2018-03-28] MEDS: LEVALBUTEROL 1.25 MG/0.5 ML CONCENTRATE NEB NEB SCH ×4 (02:24→20:47)
[2018-03-28 04:51] LABS: BASO % 0.1 % (0.0-1.0); EOS # 0.1 10^3/uL (0.0-0.50); EOS % 0.5 % (0.0-3.0); HEMATOCRIT 33.5 % (36.0-47.0); LYMPH # 0.4 10^3/uL (1.5-4.5); LYMPH % 2.8 % (24.0-44.0); MEAN CORPUSCULAR HEMOGLOBIN 29.6 pg (27.0-33.0); MEAN CORPUSCULAR HGB CONC 32.8 g/dl (32.0-36.5); MEAN CORPUSCULAR VOLUME 90.3 fl (80.0-96.0); MONO # 1.1 10^3/uL (0.0-0.8); MONO % 6.9 % (0.0-5.0); NEUTROPHILS # 13.6 10^3/uL (1.8-7.7); NEUTROPHILS % 87.1 % (36.0-66.0); PLATELET COUNT, AUTOMATED 377 10^3/uL (150-450); RED BLOOD COUNT 3.71 10^6/uL (4.00-5.40); WHITE BLOOD COUNT 15.6 10^3/uL (4.0-10.0)
[2018-03-28 04:58] LABS: BLOOD UREA NITROGEN 14 MG/DL (7-18); CALCIUM LEVEL 7.8 MG/DL (8.8-10.2); CARBON DIOXIDE LEVEL 30 MEQ/L (21-32); CHLORIDE LEVEL 101 MEQ/L (98-107); GLOMERULAR FILTRATION RATE > 60.0 (>32); GLUCOSE, FASTING 150 MG/DL (70-100); POTASSIUM SERUM 4.7 MEQ/L (3.5-5.1); SODIUM LEVEL 136 MEQ/L (136-145)
[2018-03-28] MEDS: methylPREDNISolone INJ 40 MG/1 ML VIAL (J2920) IV SCH (06:01)
[2018-03-28] MEDS: PIPERACILLIN/TAZOBACTAM SOD 3.375 GM in D5W MINI-BAG PLUS 50 ML IV SCH ×2 (06:01→12:19)
[2018-03-28] MEDS: SUCRALFATE SUSP 1GM/10ML UD PO SCH ×3 (06:33→16:33)
--- NOTE | 2018-03-28 07:03 | ECHO ---
DATE OF PROCEDURE: 03/26/2018 DATE OF : 1935 AGE: 82 GENDER: Female HEIGHT: 59 inches WEIGHT: 121 pounds BODY SURFACE AREA: 1.49 meters squared INPATIENT: ICU - Room 3205 REFERRING PHYSICIAN: Dr. Jamar Gamboa INDICATION: Congestive heart failure (CHF) MEASUREMENTS: 2-D measurements: RV: 4.0 cm LV: 3.9 cm Septum: 1.2 cm Posterior wall: 1.1 cm Aortic root: 2.8 cm LA: 4.3 cm LVEF: 65% Doppler Measurements: AV: 1.35 m/s LVOT: 1.2 m/s LVOT diameter: 2.1 cm MV - E 99 A 108 EA ratio: 0.9 Early mitral deceleration time: 187 ms E prime: 7.4 A prime: 10.3 E/E prime ratio: 13.5 PCWP: 18 mmHg PV: 0.853 m/s Pulmonary artery acceleration time: 113 ms RVSP: 28 mmHg IVC: 1.2 cm COMMENTS: Normal sinus rhythm without intraventricular conduction disturbance. M-mode and two-dimensional echocardiography were performed with pulsed, continuous wave, color flow, and tissue Doppler. Left ventricular size upper limits of normal to borderline increased with hyperkinetic wall motion. Mildly dilated left atrium with Doppler evidence of an impairment of LV diastolic function and only slightly elevated mean left atrial pressure. Right heart chambers upper limits of normal with hyperkinetic wall motion and normal estimated pulmonary arterial pressure. Normal IVC size and collapse against an elevated central venous pressure. Mild aortic valvular sclerosis without functional abnormality. Mildly thickened mitral annulus with normal leaflet excursion and only very mild insufficiency. No apparent intracardiac mass or pericardial effusion.
[2018-03-28 08:00] VITALS: BP 129/60
--- NOTE | 2018-03-28 08:14 | REP ---
Chest x-ray: Two views. History: Pleural effusion. Comparison study: March 27, 2018. Findings: The right-sided chest tube has been removed in the interval since yesterday's radiograph. There is no visible pneumothorax. Very slight blunting of the pleural angles is noted on the right. There is blunting of the pleural angles on the left with a small left pleural effusion again noted unchanged. Mild cardiomegaly is again observed unchanged. EKG monitoring electrodes and oxygen delivery tubing are again seen. There is diffuse osteopenia and there are several wedge to thoracolumbar vertebral bodies adjacent one another producing a mild gibbous deformity at the thoracolumbar junction unchanged. Impression: Right chest tube has been removed. Slight blunting right pleural angles. Small left pleural effusion persists. Electronically Signed by Jim Llamas MD 03/28/2018 08:05 A
[2018-03-28] MEDS: MOM 30ML SUSPENSION UDC PO SCH (09:15)
[2018-03-28] MEDS: MIRALAX *UNIT DOSE* 17GM PACKET PO SCH (09:15)
[2018-03-28] MEDS: DOCUSATE SODIUM 100 MG CAP PO SCH ×2 (09:15→21:06)
[2018-03-28] MEDS: ASPIRIN 81 MG ENTERIC TAB PO SCH (09:16)
[2018-03-28] MEDS: HEPARIN SOD (PORCINE) 5000 UNITS/ML VIAL SC SCH ×2 (09:16→21:06)
[2018-03-28] MEDS: FAMOTIDINE 20 MG TAB PO SCH (09:16)
[2018-03-28] MEDS: PANTOPRAZOLE 40MG TAB (PROTONIX) PO SCH (09:16)
[2018-03-28 12:00] VITALS: BP 99/62
[2018-03-28] MEDS ORDERED: predniSONE 20 MG TAB PO ONE (13:00)
--- NOTE | 2018-03-28 13:33 | IPNPDOC ---
Text Note Date of Service The patient was seen on 03/28/18. NOTE Subjective: Patient was seen and examined at the bedside. Patient is that her breathing is doing much better. She still reports a cough and yellow sputum. Denies any chest pain or palpitations. Denies any nausea, vomiting, abdominal pain, constipation or diarrhea. Objective: Vitals (See below) General: Lying in bed, no acute distress, comfortable, AAOx3 HEENT: NC, AT CVS: RRR, +S1S2 Lungs: Fair air entry b/l, no appreciable wheezing, rales or rhonchi Abdomen: Soft, nondistended, without any evidence of tenderness Extremities: No appreciable lower extremity edema, - Calf tenderness Assessment and plan: Ride sided pleural effusion - etiology unclear, possibly rheumatologic, possibly infectious - Clinically has reported improvement in breathing since fluid has been removed - Patient has had a recent thoracocentesis performed; review of records from [facility] did not reveal any fluid analysis results - Physical unrevealing - WBC count improving; will trend CRP - Fluid analysis consistent with Exudative etiology; Cytology pending - CT chest 03/27: Right hemithorax demonstrates small residual pneumothorax and small amount of trapped fluid in the minor fissure along with adjacent trace atelectasis. Left hemithorax demonstrates moderate consolidation involving the lingula and left lower lobe with small amount of associated pleural fluid. Current examination demonstrates a moderate sliding paraesophageal hiatal hernia extending from the left upper abdomen which was not apparent on 03/25/2018, but largest on 12/05/2017. - Will start Levaquin; Will DC Zosyn has been started (Antibiotic day #2) - Dr. Gamboa on consultation; appreciate their input Hx of COPD - no evidence of exacerbation this morning - Will taper down Solumedrol - c/w inhaled therapy as ordered Large Hiatal hernia - Patient has had a recent Laparoscopic Fundoplication 01/30/2018 at [facility] - c/w Protonix / Famotidine DVT prophylaxis - c/w Heparin Disposition: - Awaiting clinical improvement Parul CASTELLON, I+O VSParul, I+O Laboratory Tests 03/28/18 04:14 Red Blood Count 3.71 L, Mean Corpuscular Volume 90.3, Mean Corpuscular Hemoglobin 29.6, Mean Corpuscular Hemoglobin Concent 32.8, Red Cell Distribution Width 12.9, Neutrophils (%) (Auto) 87.1 H, Lymphocytes (%) (Auto) 2.8 L, Monocytes (%) (Auto) 6.9 H, Eosinophils (%) (Auto) 0.5, Basophils (%) (Auto) 0.1, Neutrophils # (Auto) 13.6 H, Lymphocytes # (Auto) 0.4 L, Monocytes # (Auto) 1.1 H, Eosinophils # (Auto) 0.1, Basophils # (Auto) 0.0, Calcium Level 7.8 L Vital Signs Date Time Temp Pulse Resp B/P (MAP) Pulse Ox O2 Delivery O2 Flow Rate FiO2 03/28/18 12:00 98.4 74 18 99/62 (74) 94 Room Air 03/28/18 04:00 2.0 03/25/18 16:22 50 I&O- Last 24 Hours up to 6 AM 03/28/18 06:00 Intake Total 1550 ml Output Total 500 ml Balance 1050 ml FAZAL GORDON MD Mar 28, 2018 13:33
[2018-03-28] MEDS: IPRATROPIUM 0.5MG/ALBUTEROL 2.5MG INH SOL UD 3ML (DUONEB)(J7620) NEB PRN (14:24)
[2018-03-28] MEDS ORDERED: LevoFLOXacin 500 MG TABLET PO ONE (15:00)
[2018-03-28] MEDS ORDERED: SLF 3 ML SYR IV PRN (15:45)
[2018-03-28 16:05] VITALS: BP 131/72
--- NOTE | 2018-03-28 17:05 | IPN ---
DATE: 03/28/2018 Ms Vanegas is again doing well today. She is breathing well and she has been ambulating. Her chest x-ray is essentially unchanged from yesterday. Her vital signs show a maximum temperature (T-max) of 99.5 with a heart rate that ranges between 78 and 72 in sinus rhythm, respiratory rate of 20-22 without the use of accessory muscles, who is 95% saturated on room air and blood pressures that range between 119/52 to 129/60. Her intake and output has been recorded as 1660 in and 100 out for a positivity of 1560 mL. She has had three voids and four bowel movements and I suspected the out do not reflect her true output. The chest tube was removed yesterday. Her weight today is 55.5 kg compared to 55.5 kg on 03/26/2018. On physical examination, she has normal vesicular sounds with some decreased breath sounds in the left lower hemithorax with some E to A egophony in the left lower lobe. I hear no wheezing, rhonchi, or other rales. Percussion note is full to the diaphragm. Cardiac exam is without murmurs, clicks, gallops or rubs. I cannot feel her point of maximum impulse (PMI). S1 and S2 are normal. Abdomen is soft and nontender. Bowel sounds are positive. There is no hepatomegaly. No costovertebral angle (CVA) tenderness. Extremities show no pretibial edema with no calf tenderness. No differential swelling of the upper extremities. Skin is warm, dry and perfused without cyanosis or mottling including that of the nail beds and knees. Neck is supple. There is no jugular venous distention. No subcutaneous emphysema. Trachea is midline. Mouth shows her mucous membranes to be pink and moist. Lips and commissures are without lesions. There is no thrush. Eyes show her pupils to be equal and reactive. Extraocular movements intact. Sclerae nonicteric. Neurologic shows II-XII intact along with gross motor and gross sensation intact. Gait is not tested. Psychiatric showed her to be awake, alert and oriented times three with appropriate and affect and conversational. White count today is down to 15.6 with a hemoglobin and hematocrit of 11.0 and 33.5 essentially unchanged from yesterday with a platelet count of 377. Differential shows 87% neutrophils, 2% lymphocytes, 6% monocytes. There are no immature forms or toxic granulations. Her chemistries today show a normal white count with a BUN and creatinine of 14 and 0.7, glucose 115, calcium 7.8. Her rheumatoid factor is less than 10 and her MACI screen is still pending. Her chest x-ray today shows her lung fully expanded to the chest wall. There is still blunting of the left costophrenic angle and obscuration of the left hemidiaphragm secondary to her consolidation. I see no evidence of a pleural effusion however. She does have some fluid which turns out to be in the minor fissure according to her CAT scan yesterday. I have gone over the cytology with Dr. Ji of pathology. No malignancy is seen. We will await the cell block tomorrow. I discussed her echocardiogram yesterday showing some diastolic dysfunction. IMPRESSION: 1. Right-sided lymphocytic exudate pleural effusion of unknown origin but probably now secondary to diastolic dysfunction. 2. Chronic obstructive pulmonary disease (COPD). 3. Gastroesophageal reflux disease (GERD). 4. Status post hiatal hernia repair in the past few months, presumably a Leland fundoplication in [place]. 5. Hypoxic respiratory failure, resolved. 6. Left lower lobe consolidation. PLAN AND DISCUSSION: Her Gram stain showed many gram-negative cocci. Nothing has reported as grown. I do think that her left lower lobe consolidation is a pneumonia. I hence therefore placed her on Zosyn yestreday. High dose steroids were started in [place] and continued here. I weaned them down yesterday and I will wean then down even more with oral prednisone with a 20, 10, 5 taper over the next 3 days. Her right side pleural effusion is a dysfunction, although that it is am equivocal call. I am weighing the MACI although I suspect that is going to be negative. I would have no objection to her being discharged tomorrow. She has already been written for PC orders.
[2018-03-28 20:00] VITALS: BP 136/73
[2018-03-28] MEDS: SLF 3 ML SYR IV SCH (21:06)
[2018-03-28 23:59] VITALS: BP 125/76
[2018-03-29] MEDS: LEVALBUTEROL 1.25 MG/0.5 ML CONCENTRATE NEB NEB SCH ×3 (03:49→13:31)
[2018-03-29 04:00] VITALS: BP 118/60
[2018-03-29 05:00] LABS: BASO # 0.1 10^3/uL (0.0-0.2); BASO % 0.5 % (0.0-1.0); EOS % 0.2 % (0.0-3.0); HEMATOCRIT 34.8 % (36.0-47.0); HEMOGLOBIN 11.5 g/dl (12.0-15.5); LYMPH # 1.1 10^3/uL (1.5-4.5); LYMPH % 10.5 % (24.0-44.0); MEAN CORPUSCULAR VOLUME 90.9 fl (80.0-96.0); MONO # 1.2 10^3/uL (0.0-0.8); MONO % 11.6 % (0.0-5.0); NEUTROPHILS # 7.5 10^3/uL (1.8-7.7); NEUTROPHILS % 73.9 % (36.0-66.0); PLATELET COUNT, AUTOMATED 381 10^3/uL (150-450); RED BLOOD COUNT 3.83 10^6/uL (4.00-5.40); WHITE BLOOD COUNT 10.2 10^3/uL (4.0-10.0)
[2018-03-29] MEDS: SLF 3 ML SYR IV SCH ×2 (05:09→08:17)
[2018-03-29 05:23] LABS: BLOOD UREA NITROGEN 15 MG/DL (7-18); C REACTIVE PROTEIN QUANTITATIV 3.85 MG/DL (0.00-0.30); CALCIUM LEVEL 8.1 MG/DL (8.8-10.2); CARBON DIOXIDE LEVEL 29 MEQ/L (21-32); CHLORIDE LEVEL 102 MEQ/L (98-107); CREATININE FOR GFR 0.61 MG/DL (0.55-1.30); GLOMERULAR FILTRATION RATE > 60.0 (>32); GLUCOSE, FASTING 112 MG/DL (70-100); POTASSIUM SERUM 4.3 MEQ/L (3.5-5.1); SODIUM LEVEL 136 MEQ/L (136-145)
[2018-03-29] MEDS ORDERED: LevoFLOXacin 250 MG TABLET PO SCH (06:00)
[2018-03-29 08:00] VITALS: BP 128/59
[2018-03-29] MEDS: ASPIRIN 81 MG ENTERIC TAB PO SCH (08:15)
[2018-03-29] MEDS: FAMOTIDINE 20 MG TAB PO SCH (08:15)
[2018-03-29] MEDS: SUCRALFATE SUSP 1GM/10ML UD PO SCH ×2 (08:15→12:21)
[2018-03-29] MEDS: PANTOPRAZOLE 40MG TAB (PROTONIX) PO SCH (08:15)
[2018-03-29] MEDS: MOM 30ML SUSPENSION UDC PO SCH (08:16)
[2018-03-29] MEDS: DOCUSATE SODIUM 100 MG CAP PO SCH (08:16)
[2018-03-29] MEDS: MIRALAX *UNIT DOSE* 17GM PACKET PO SCH (08:16)
[2018-03-29] MEDS: HEPARIN SOD (PORCINE) 5000 UNITS/ML VIAL SC SCH (08:16)
--- NOTE | 2018-03-29 08:53 | REP ---
Chest x-ray: Two views. History: Pleural effusion. Comparison study: 28 March 2018. Findings: The left pleural effusion has decreased in the interval since yesterday's chest radiograph. There is still slight blunting of the left lateral pleural angle. There is no evidence of pneumothorax on either side. Small amount of fissural thickening is visible on the lateral radiograph anteriorly as before. 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 Electronically Signed by Jim Llamas MD 03/29/2018 04:58 P
[2018-03-29] MEDS ORDERED: LEVA250T13 PO (09:35)
[2018-03-29] MEDS ORDERED: PRED5TA PO (09:35)
--- NOTE | 2018-03-29 11:32 | DS.PDOC ---
Discharge Summary General Date of Admission Mar 25, 2018 at 13:10 Date of Discharge 03/29/2018 Discharge Summary PROCEDURES PERFORMED DURING STAY: Chest tube placement on 03/25 and removal on 03/[address] Gamboa ADMITTING DIAGNOSES / DISCHARGE DIAGNOSES: Ride sided pleural effusion - etiology unclear, possibly rheumatologic, possibly infectious - 2/2 HCAP (possibly 2/2 gram negative pneumonia), possibly cardiac Hx of COPD Large Hiatal hernia DVT prophylaxis COMPLICATIONS/CHIEF COMPLAINT: Pleural Effusion. HISTORY OF PRESENT ILLNESS: Patient is an 82-year-old female with a PMHx of COPD on 2L O2, Hx of Paraesophageal hiatal hernia (s/p laparoscopic repair), Hx of Pleural effusions, was presented to the [facility] as a transfer from [facility] for evaluation of pleural effusions. Patient was admitted to hospitalist service for further evaluation, treatment and Dr. Gamboa (Cardiothoracic surgery) was called on consultation. HOSPITAL COURSE: Ride sided pleural effusion - etiology unclear, possibly rheumatologic, possibly infectious - possibly 2/2 HCAP / gram negative pneumonia, possibly cardiac - Currently patient has no reports of chest pain, shortness of breath or palpitations; as noted a significant improvement in her breathing - Patient has had a recent thoracocentesis performed; review of records from [facility] did not reveal any fluid analysis results - Physical unrevealing - WBC and CRP continued to improve - RF negative; MACI pending - Fluid analysis consistent with Exudative etiology; Cytology 03/28: Negative; Cell Block pathology 03/28: pending - Sputum culture 03/26: Moraxella Catarrhalis, Raoultella Planticola, Strep Porcinus - CT chest 03/27: Right hemithorax demonstrates small residual pneumothorax and small amount of trapped fluid in the minor fissure along with adjacent trace atelectasis. Left hemithorax demonstrates moderate consolidation involving the lingula and left lower lobe with small amount of associated pleural fluid. Current examination demonstrates a moderate sliding paraesophageal hiatal hernia extending from the left upper abdomen which was not apparent on 03/25/2018, but largest on 12/05/2017. - c/w Levaquin; s/p Zosyn (Antibiotic day #3) - will complete antibiotic course as an outpatient - Dr. Gamboa on consultation; appreciate their input; will provide outpatient follow-up within the next 7 days Hx of COPD - no evidence of exacerbation this morning - c/w Prednisone taper - c/w inhaled therapy as ordered Large Hiatal hernia - Patient has had a recent Laparoscopic Fundoplication 01/30/2018 at [facility] - c/w Protonix / Famotidine DVT prophylaxis - c/w Heparin DISCHARGE MEDICATIONS: Please see below. ALLERGIES: Please see below. PHYSICAL EXAMINATION ON DISCHARGE: Vitals (See below) General: Lying in bed, no acute distress, comfortable, AAOx3 HEENT: NC, AT CVS: RRR, +S1S2 Lungs: Fair air entry b/l, no appreciable wheezing, rales or rhonchi Abdomen: Soft, nondistended, without any evidence of tenderness Extremities: No appreciable lower extremity edema, - Calf tenderness LABORATORY DATA: Please see below. ACTIVITY: [As tolerated]. DISCHARGE PLAN: Follow up with Dr. Carolyn Jones and Dr. Gamboa within 7 days Remain compliant with treatment plan and medications Return to the ER if you experience any problems DISPOSITION: Home DISCHARGE CONDITION: [Stable]. TIME SPENT ON DISCHARGE: Greater than [35] minutes. Vital Signs/I&Os Vital Signs Date Time Temp Pulse Resp B/P (MAP) Pulse Ox O2 Delivery O2 Flow Rate FiO2 03/29/18 08:00 98.6 78 20 128/59 (82) 95 Room Air 03/29/18 08:00 0.0 03/25/18 16:22 50 I&O- Last 24 Hours up to 6 AM 03/29/18 06:00 Intake Total 1210 ml Output Total 550 ml Balance 660 ml Laboratory Data Labs 24H Laboratory Tests 2 03/28/18 14:08: C-Reactive Protein, Quantitative 6.40H 03/29/18 04:44: C-Reactive Protein, Quantitative 3.85H, Immature Granulocyte % (Auto) 3.3H, White Blood Count 10.2H, Red Blood Count 3.83L, Hemoglobin 11.5L, Hematocrit 34.8L, Mean Corpuscular Volume 90.9, Mean Corpuscular Hemoglobin 30.0, Mean Corpuscular Hemoglobin Concent 33.0, Red Cell Distribution Width 12.9, Platelet Count 381, Neutrophils (%) (Auto) 73.9H, Lymphocytes (%) (Auto) 10.5L, Monocytes (%) (Auto) 11.6H, Eosinophils (%) (Auto) 0.2, Basophils (%) (Auto) 0.5, Neutrophils # (Auto) 7.5, Lymphocytes # (Auto) 1.1L, Monocytes # (Auto) 1.2H, Eosinophils # (Auto) 0.0, Basophils # (Auto) 0.1, Nucleated Red Blood Cells % (auto) 0.0, Anion Gap 5L, Glomerular Filtration Rate > 60.0, Blood Urea Nitrogen 15, Creatinine 0.61, Sodium Level 136, Potassium Level 4.3, Chloride Level 102, Carbon Dioxide Level 29, Calcium Level 8.1L CBC/BMP Laboratory Tests 03/29/18 04:44 Red Blood Count 3.83 L, Mean Corpuscular Volume 90.9, Mean Corpuscular Hemoglobin 30.0, Mean Corpuscular Hemoglobin Concent 33.0, Red Cell Distribution Width 12.9, Neutrophils (%) (Auto) 73.9 H, Lymphocytes (%) (Auto) 10.5 L, Monocytes (%) (Auto) 11.6 H, Eosinophils (%) (Auto) 0.2, Basophils (%) (Auto) 0.5, Neutrophils # (Auto) 7.5, Lymphocytes # (Auto) 1.1 L, Monocytes # (Auto) 1.2 H, Eosinophils # (Auto) 0.0, Basophils # (Auto) 0.1, Calcium Level 8.1 L Microbiology Microbiology 03/25/18 Acid Fast Stain, Received Pending 03/25/18 Mycobacterial Culture, Received Pending 03/25/18 Fungal Smear, Received Pending 03/25/18 Fungal Culture, Received Pending 03/25/18 Gram Stain - Final, Complete 03/25/18 Anaerobic Culture - Final, Complete 03/25/18 Body Fluid Culture - Final, Complete 03/28/18 Gram Stain - Final, Resulted 03/28/18 Sputum Culture, Resulted Pending 03/26/18 Gram Stain - Final, Complete 03/26/18 Sputum Culture - Final, Complete Moraxella Catarrhalis Raoultella Planticola Streptococcus Porcinus Discharge Medications Scheduled (Trelegy Ellipta 100-62.5-25 Mcg/INH) 1 Aer Aer, 1 PUFF INH DAILY, (Reported) (Dexilant) 60 Mg Cap, 60 MG PO DAILY, (Reported) Albuterol Sulfate (Albuterol Sulfate) 2.5 Mg/3 Ml Nebu, 2.5 MG INH TID, (Reported) Aspirin (Aspirin 81) 81 Mg Tab, 81 MG PO DAILY, (Reported) Docusate Sodium (Docusate Sodium) 100 Mg Tab, 100 MG PO BID, (Reported) Levofloxacin Hemihydrate (Levaquin) 250 Mg Tab, 250 MG PO DAILY@0600 Prednisone (Prednisone) 5 Mg Tab, 5 MG PO DAILY 1 tab only Ranitidine HCl (Ranitidine HCl) 150 Mg Tab, 1 TAB PO DAILY, (Reported) Sucralfate (Sucralfate) 1 Gm/10 Ml Vaishali, 10 ML PO AC, (Reported) Scheduled PRN Acetaminophen (Tylenol) 325 Mg Tab, 650 MG PO Q4H PRN for PAIN / FEVER, (Reported) Albuterol Sulfate (Proair Hfa) 108 Mcg/Act Aer, 2 PUFF INH Q4H PRN for SHORTNESS OF BREATH, (Reported) Polyethylene Glycol (Miralax) 1 Pow Pow, 17 GM PO DAILY PRN for CONSTIPATION, (Reported) dilute in 8 ounces of water or juice Allergies Coded Allergies: No Known Allergies (Verified , 12/14/17) FAZAL GORDON MD Mar 29, 2018 11:32
[2018-03-29] MEDS ORDERED: predniSONE 10 MG TAB PO ONE (13:00)
[2018-03-29 14:13] LABS: ANTI DOUBLE STRAND-DNA AB 1 IU/mL (0-9); ANTINUCLEAR ANTIBODIES DIRECT Positive (Negative); RNP ANTIBODIES 1.1 AI (0.0-0.9); SJOGREN'S ANTI SS-A <0.2 AI (0.0-0.9); SJOGREN'S ANTI SS-B <0.2 AI (0.0-0.9); SMITH ANTIBODIES <0.2 AI (0.0-0.9)
--- NOTE | 2018-03-29 15:00 | IPN ---
DATE: 03/29/2018 Ms Vanegas is sitting comfortably up in the chair. She is breathing well and not complaining of any chest pain. She did have a coughing spell today, which depleted her temporarily. Her vital signs show a maximum temperature (T-max) of 98.6 with a heart rate that ranges between 65 and 78 in a sinus rhythm, respiratory rate of 16 to 20 without the use of accessory muscles, who is 97 to 99% saturated on 2 liters nasal cannula, and whose blood pressures that is ranging between 136/73 to 118/60. Her intake and output over the past 24 hours has been recorded as 1560 in and 950 out for a positivity of 510 mL. Her weight today is 58 kg compared to 55.5 kg yesterday. She is in and out of her bed in the progressive care unit (PCU). PHYSICAL EXAMINATION: LUNGS: Her lungs show normal vesicular sounds on either side. Percussion note is full to the diaphragm. CARDIAC EXAM: Without murmurs, clicks, gallops or rubs. I cannot feel her point of maximum impulse (PMI). S1, S2 are normal. ABDOMEN: Soft, nontender. Bowel sounds positive. There is no hepatomegaly. No costovertebral angle tenderness. EXTREMITIES: Show no pretibial edema. No calf tenderness. No differential swelling of the upper extremities. SKIN: Warm, dry and perfused without cyanosis or mottling, including that of the nail beds and knees. NECK: Supple. There is no jugular venous distention. No subcutaneous emphysema. Trachea is midline. MOUTH: Shows her mucous membranes to be pink and moist. Lips and commissures without lesions. There is no thrush. EYES: Show her pupils to be equal and reactive. Extraocular motion intact. Sclerae anicteric. NEUROLOGIC: Shows II through XII intact with gross motor and gross sensation intact. Gait is not tested. PSYCHIATRIC: Shows her to be awake and alert, oriented times three with appropriate mood and affect and conversational. LABORATORY DATA: Her white count today is 10.2, down from 15.7 and 19.3 the day before. Platelet count is 381, a hemoglobin and hematocrit of 11.5 and 34.8, slightly increased from yesterday's of 11.0 and 33.5. Differential shows 73% neutrophils, 10% lymphocytes, 11% monocytes. There are no immature forms and no toxic granulations. Her chemistries show normal electrolytes with a BUN and creatinine of 15 and 0.61 with a glucose of 112 and a calcium of 8.1. Her chest x-ray today shows her lung fully expanded to the chest wall. Particularly the left lower hemithorax is much improved with almost a sharp costophrenic angle. There is a little bit of blunting of the left costophrenic angle, however. I see no evidence of effusion on the lateral film. IMPRESSION: 1. Right-sided lymphocytic exudative pleural effusion of unknown origin but perhaps secondary to diastolic dysfunction. 2. Chronic obstructive pulmonary disease (COPD). 3. Gastroesophageal reflux disease (GERD). 4. Status post hiatal hernia repair in the past few months, presumably a Trisha fundoplication in [place]. 5. Hypoxic respiratory failure, resolved. 6. Left lower lobe consolidation, improving 7. Pneumonia, left lower lobe, gram negative. PLAN AND DISCUSSION: I have no objection to her going home today. Her left lower hemithorax looks much improved and with her increased coughing and bringing up sputum she is probably now starting to clear her pneumonia. She had 10 mg of prednisone today and the hospitalist service has written for 5 tomorrow and then off. I am still waiting for MACI. I will see her back in the office in approximately 10 days with a postoperative chest x-ray. Again, I am not completely convinced that the pleural effusion is secondary to heart failure and diastolic dysfunction. Her cell block has come back negative for malignancy. She is also being sent home on Levaquin, changed from Zosyn orally as an antibiotic. [facility]
[2018-03-30] MEDS ORDERED: predniSONE 5 MG TAB PO ONE (13:00)
--- NOTE | 2018-04-23 13:44 | RO ---
DATE OF PROCEDURE: 03/25/2018 PREPROCEDURE DIAGNOSIS: Right pleural effusion. POSTPROCEDURE DIAGNOSIS: Right pleural effusion. PROCEDURE: Insertion of right lateral chest tube with conscious sedation using Versed. SURGEON: Dr. Jamar Gamboa ANESTHESIA: Concision sedation using Versed. PROCEDURE: Under satisfactory moderate sedation achieved with 2 mg of Versed. The patient was prepped and draped in the usual sterile fashion. Incision was made and a tunnel was created into the chest and a #24 chest tube was placed without difficulty. 1500 mL of clear yellow fluid was removed. Chest tube was secured to the chest wall and connected to a Pleur-evac. Patient tolerated the procedure well and a chest x-ray is pending.
== END 2018-03-29 14:47 | disposition home or self-care (01) | DRG 186 ==
LOC: M ICU 13:10 → M PCU 03-28 16:05
PROVIDERS: ADMIT Internal Medicine; ATTEND Internal Medicine
DX: J90 Pleural effusion, not elsewhere classified (principal); J96.01 Acute respiratory failure with hypoxia; J15.6 Pneumonia due to other Gram-negative bacteria; J44.1 Chronic obstructive pulmonary disease with (acute) exacerbation; K44.9 Diaphragmatic hernia without obstruction or gangrene; Z79.899 Other long term (current) drug therapy; Z99.81 Dependence on supplemental oxygen; K21.9 Gastro-esophageal reflux disease without esophagitis; K59.00 Constipation, unspecified

== ENCOUNTER → 2018-04-05 | Outpatient (CLI) | payer MEDICARE ==
[~2018-04-05] MED LIST changes: +ASPI1TAB PO; +DOCU100T8 PO; +LEVA250T13 PO; +PRED5TA PO; +SUCR10SS PO; +TYLE325T5 PO
--- NOTE | 2018-04-05 11:34 | REP ---
Chest two views HISTORY: Pleural effusion Comparison: 03/29/2018 The lungs are clear. Fissural thickening is seen in the lateral radiograph unchanged compared to the previous study. There is blunting of the left costophrenic angle due to a small pleural effusion that slightly decreased in size compared to the previous study. The heart is normal in size. The pulmonary vasculature is normal in appearance. There are old compression fractures of several lower thoracic vertebral bodies. IMPRESSION: Small left pleural effusion slightly decreased compared to the previous study. Electronically Signed by Arnulfo Young MD 04/05/2018 11:25 A
== END ==
LOC: M SMT 10:57
PROVIDERS: ATTEND Thoracic Surgery (Cardiothoracic Vascular Surgery)
DX: J90 Pleural effusion, not elsewhere classified (principal)